=== PATIENT | female | born 1975 | race Caucasian/White ===

== ENCOUNTER → 2016-12-18 | Outpatient (CLI) | payer OTHER ==
[2016-12-18 16:27] LABS: THYROID STIMULATING HORMONE 0.291 uIu/ml (0.300-4.500)
[2016-12-24 15:30] LABS: TSI <89 % baseline (<140)
== END | disposition home or self-care (01) ==
LOC: C.LAB1850 14:47
PROVIDERS: ATTEND Internal Medicine Endocrinology, Diabetes & Metabolism
DX: M62.81 Muscle weakness (generalized) (principal); R68.89 Other general symptoms and signs; R63.4 Abnormal weight loss; R00.2 Palpitations; R94.6 Abnormal results of thyroid function studies

== ENCOUNTER → 2017-04-16 | Outpatient (CLI) | payer BC, OTHER ==
[2017-04-16 12:39] LABS: THYROID STIMULATING HORMONE 1.24 uIu/ml (0.300-4.500)
[2017-04-18 15:41] LABS: TSI <89 % baseline (<140)
== END | disposition home or self-care (01) ==
LOC: C.LAB1850 09:56
PROVIDERS: ATTEND Internal Medicine Endocrinology, Diabetes & Metabolism
DX: R63.4 Abnormal weight loss (principal); R68.89 Other general symptoms and signs; R94.6 Abnormal results of thyroid function studies